=== PATIENT | female | born 1945 | race African-American/Black ===

== ENCOUNTER 2016-12-08 07:41 | Emergency (ER) | payer OTHER ==
[~2016-12-08] VITALS: Ht 167.6 cm; Wt 78.0 kg
[~2016-12-08 07:41] MED LIST: ATOR10TA15 PO; CELE200C PO; DULO1CAP PO; FOLI800T PO; GABA300C5 PO; HYDR25TA5 PO; METF500T PO; METH2.5T PO; OXYC1TAB36 PO; VERA27.5 NASAL
[2016-12-08 07:43] VITALS: BP 163/75; PULSE 84; RESP 14; TEMP 98.1; O2SAT 98
--- NOTE | 2016-12-08 08:38 | PD ---
HPI . numbness and tingling left arm with one episode of vomiting Chief Complaint: Pain: Acute or Chronic Time Seen by Provider: 08:38 Travel History International Travel<30 days: No Contact w/Intl Traveler<30days: No Traveled to known affect area: No History of Present Illness HPI 71-year-old female with history of hypertension, diabetes, rheumatoid arthritis , issues with her neck in the past here with complaints of left arm numbness and tingling as well as one episode of vomiting last night approximately at 10: 30 PM. Patient says that she usually has some nerve issues in her left upper extremity that causes some numbness and tingling however this has been a little bit different especially with the vomiting. She also reports a history of ruptured disc in her neck. Patient says that approximately at 10:30 PM she had an episode of vomiting and she became very concerned for cardiac issues. She is here in the emergency department concerned that she may have had a heart attack or other cardiac event. She is requesting further workup. 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 JENNY, LAPAORTOMY/ LYSIS ADH., LAPAROTOMY CYSTECTOMY) AICD: No Body Medical Devices: CERVICAL HARDWARE Cholecystectomy: Yes Gynecologic Surgery: Yes (HYSTERECTOMY) Hysterectomy: Yes Joint Replacement: Yes (RIGHT KNEE) Neurologic Surgery: Yes (ANT. CERV. FUSION 2001&2015) Other Surgery: Yes (cervical fusion.) Social History Alcohol Use: No Tobacco Use: No Substance Use: No Allergies-Medications (Allergen,Severity, Reaction): Coded Allergies: sulfur (Unverified Allergy, Severe, 12/08/16) 07/09/14 ELEVATES LIVER ENZYMES Sulfa (Sulfonamide Antibiotics) (Unverified Allergy, Unknown, 12/08/16) Reported Meds & Prescriptions Reported Meds & Active Scripts Active Reported Metformin (Metformin HCl) 500 Mg Tab 500 Mg PO BIDPC With meals Hydrochlorothiazide 25 Mg Tab 25 Mg PO DAILY Gabapentin 300 Mg Cap 300 Mg PO TID Celebrex (Celecoxib) 200 Mg Cap 200 Mg PO DAILY Veramyst (Fluticasone Furoate) 27.5 Mcg/Act [place] 2 [place] NASAL DAILY Methotrexate 2.5 Mg Tab 0.7 Ml PO Q7D Folic Acid 800 Mcg Tab 1,000 Mcg PO DAILY Oxycodone-Acetaminophen 10-325 mg Tab 1 Tab PO Q8HR Duloxetine DR (Duloxetine HCl) 20 Mg Capdr 20 Mg PO DAILY Atorvastatin (Atorvastatin Calcium) 10 Mg Tab 10 Mg PO HS Review of Systems General / Constitutional: No: Fever Eyes: No: Visual changes HENT: No: Headaches Cardiovascular: No: Chest Pain or Discomfort Respiratory: No: Shortness of Breath Gastrointestinal: Positive: Vomiting, No: Abdominal Pain Genitourinary: No: Dysuria Musculoskeletal: No: Pain Skin: No Rash Neurologic: Positive: Paresthesia (left arm), No: Weakness Psychiatric: No: Depression Endocrine: No: Polydipsia Hematologic/Lymphatic: No: Easy Bruising Physical Exam Narrative GENERAL: AAO x 3, no acute distress, Well-nourished, well-developed patient. SKIN: Warm and dry. No visible rashes or bruising. HEAD: Normocephalic and atraumatic. EYES: No scleral icterus. No injection or drainage. EOM intact, ENT: No nasal drainage noted. Mucous membranes pink. Airway patent. NECK: Supple, trachea midline. No JVD. No C-spine process tenderness or drop off. Flexion and extension normal. No tenderness to palpation of the trapezius and sternocleidomastoid. CARDIOVASCULAR: Regular rate and rhythm without murmurs, gallops, or rubs. RESPIRATORY: Breath sounds equal bilaterally. No accessory muscle use. No rhonchi or rales. GASTROINTESTINAL: Abdomen soft, non-tender, nondistended. No rebound or guarding EXTREMITIES: No cyanosis or edema. BACK: No obvious deformity. No CVA tenderness. NEURO: CN II-12 intact, tool repairer strength normal b/l, UE and LE 5/5, no focal deficits, negative pronator drift PSYCH: AAO x 3, normal affect. Data Data Last Documented VS Vital Signs Date Time Temp Pulse Resp B/P (MAP) Pulse Ox O2 Delivery O2 Flow Rate FiO2 12/08/16 09:27 98 Room Air 12/08/16 09:27 18 12/08/16 08:53 98.3 75 Orders Orders Electrocardiogram (12/08/16:17) Basic Metabolic Panel (Bmp) (12/08/16 09:17) Ckmb (Isoenzyme) Profile (12/08/16 09:17) Complete Blood Count With Diff (12/08/16:17) Magnesium (Mg) (12/08/16:17) Prothrombin Time / Inr (Pt) (12/08/16 09:17) Act Partial Throm Time (Ptt) (12/08/16 09:17) Troponin I (12/08/16:17) Chest, Single Ap (12/08/16:17) Ecg Monitoring (12/08/16 09:17) Bilateral Bp Monitoring (12/08/16 09:17) Iv Access Insert/Monitor (12/08/16:17) Oximetry (12/08/16 09:17) Oxygen Administration (12/08/16:17) Sodium Chloride 0.9% Flush (Ns Flush) (12/08/16 09:30) MDM Medical Decision Making Medical Screen Exam Complete: Yes Emergency Medical Condition: Yes Medical Record Reviewed: Yes Differential Diagnosis Cervical radiculopathy, gastroenteritis, atypical chest pain, ACS, less likely CVA, TIA Narrative Course 71-year-old female here with complaints of numbness and tingling in her left upper extremity along with one episode of vomiting. I have done an examination and I do not see any gross abnormalities on her neuro examination. She also has no abdominal pain. Patient is concerned about cardiac etiology. With her significant past medical history I will transfer her to a medical pod for further workup. I have discussed with Dr. Barnes, who will resume care of this patient. Condition: Stable Tia Morton Dec 08, 2016 08:38
[2016-12-08 08:53] VITALS: BP 147/61; PULSE 75; RESP 18; TEMP 98.3; O2SAT 97
[2016-12-08 09:27] VITALS: RESP 18; O2SAT 98
[2016-12-08] MEDS ORDERED: SODIUM CHLORIDE 0.9% FLUSH 10 ML FLUSH IVF PRN (09:30)
--- NOTE | 2016-12-08 09:37 | RADRPT ---
EXAM DATE/TIME: 12/08/2016 09:18 [facility] COMPARISON: SHOULDER LEFT COMPLETE (>2VWS), July 11, 2015, 15:54. INDICATIONS : Left arm tingling. Minor chest pain. MEDICAL HISTORY : None. SURGICAL HISTORY : Cervical spine surgery. ENCOUNTER: Initial ACUITY: 2 weeks PAIN SCORE: 1/10 LOCATION: Left middle chest FINDINGS: A single view of the chest demonstrates the lungs to be symmetrically aerated without evidence of mas s, infiltrate or effusion. The cardiomediastinal contours are unremarkable. Osseous structures are intact. CONCLUSION: 1. No acute cardiopulmonary findings. Hayes Thomas MD on December 08, 2016 at 9:35 Board Certified Radiologist. This report was verified electronically.
[2016-12-08 09:38] VITALS: BP_SYST 146; BP_SYST 155; BP_DIAS 74; BP_DIAS 79; PULSE 78
[2016-12-08 09:57] LABS: APTT (PATIENT) 25.3 SEC (24.3-30.1); INTERNATIONAL NORMALIZED RATIO 0.9 RATIO; PROTHROMBIN TIME - PATIENT 9.4 SEC (9.8-11.6)
--- NOTE | 2016-12-08 10:35 | PD ---
Data Data Last Documented VS Vital Signs Date Time Temp Pulse Resp B/P (MAP) Pulse Ox O2 Delivery O2 Flow Rate FiO2 12/08/16 09:38 78 155/74 (101) 146/79 (101) 12/08/16 09:27 98 Room Air 12/08/16 09:27 18 12/08/16 08:53 98.3 Orders Orders Electrocardiogram (12/08/16 09:17) Complete Blood Count With Diff (12/08/16 09:17) Prothrombin Time / Inr (Pt) (12/08/16 09:17) Act Partial Throm Time (Ptt) (12/08/16 09:17) Chest, Single Ap (12/08/16 09:17) Ecg Monitoring (12/08/16 09:17) Iv Access Insert/Monitor (12/08/16 09:17) Oximetry (12/08/16 09:17) Oxygen Administration (12/08/16 09:17) Sodium Chloride 0.9% Flush (Ns Flush) (12/08/16 09:30) Urinalysis - C+S If Indicated (12/08/16 09:50) Comprehensive Metabolic Panel (12/08/16 10:35) Labs Laboratory Tests Test 12/08/16 09:30 12/08/16 10:20 12/08/16 10:55 White Blood Count 7.7 TH/MM3 Red Blood Count 4.25 MIL/MM3 Hemoglobin 12.4 GM/DL Hematocrit 39.4 % Mean Corpuscular Volume 92.9 FL Mean Corpuscular Hemoglobin 29.2 PG Mean Corpuscular Hemoglobin Concent 31.4 % Red Cell Distribution Width 15.0 % Platelet Count 173 TH/MM3 Mean Platelet Volume 8.3 FL Neutrophils (%) (Auto) 76.6 % Lymphocytes (%) (Auto) 13.9 % Monocytes (%) (Auto) 8.5 % Eosinophils (%) (Auto) 0.6 % Basophils (%) (Auto) 0.4 % Neutrophils # (Auto) 5.9 TH/MM3 Lymphocytes # (Auto) 1.1 TH/MM3 Monocytes # (Auto) 0.7 TH/MM3 Eosinophils # (Auto) 0.0 TH/MM3 Basophils # (Auto) 0.0 TH/MM3 CBC Comment DIFF FINAL Differential Comment Prothrombin Time 9.4 SEC Prothromb Time International Ratio 0.9 RATIO Activated Partial Thromboplast Time 25.3 SEC Urine Color YELLOW Urine Turbidity CLEAR Urine pH 6.5 Urine Specific Mark 1.021 Urine Protein NEG mg/dL Urine Glucose (UA) NEG mg/dL Urine Ketones NEG mg/dL Urine Occult Blood NEG Urine Nitrite NEG Urine Bilirubin NEG Urine Urobilinogen LESS THAN 2.0 MG/DL Urine Leukocyte Esterase NEG Urine RBC 1 /hpf Urine WBC 2 /hpf Urine Squamous Epithelial Cells <1 /hpf Urine Mucus FEW /lpf Microscopic Urinalysis Comment CULT NOT INDICATED Blood Urea Nitrogen 15 MG/DL Creatinine 0.62 MG/DL Random Glucose 142 MG/DL Total Protein 7.3 GM/DL Albumin 3.6 GM/DL Calcium Level 9.3 MG/DL Alkaline Phosphatase 88 U/L Aspartate Amino Transf (AST/SGOT) 18 U/L Alanine Aminotransferase (ALT/SGPT) 33 U/L Total Bilirubin 0.3 MG/DL Sodium Level 138 MEQ/L Potassium Level 3.9 MEQ/L Chloride Level 102 MEQ/L Carbon Dioxide Level 30.8 MEQ/L Anion Gap 5 MEQ/L Estimat Glomerular Filtration Rate 115 ML/MIN [facility] Medical Record Reviewed: Yes Supervised Visit with RADHA: No Narrative Course CBC & BMP Diagram 12/08/16 09:30 12/08/16 10:55 Total Protein 7.3, Albumin 3.6, Calcium Level 9.3, Alkaline Phosphatase 88, Aspartate Amino Transf (AST/SGOT) 18, Alanine Aminotransferase (ALT/SGPT) 33, Total Bilirubin 0.3 The urinalysis is normal EKG: Sinus rate 64 normal axis intervals no ischemic injury pattern Chest x-ray: No acute cardio pulmonary disease The patient is resting comfortably and feels better, is alert and in no distress. The patients results and examination findings were discussed. The repeat examination is unremarkable and benign. The history, exam, diagnostic testing, and current condition do not suggest any significant pathology to warrant further testing, continued ED treatment, admission, or surgical evaluation at this point. The vital signs have been stable. The patient does not have uncontrollable pain, intractable vomiting, or other significant symptoms. The patient's condition is stable and appropriate for discharge. The patient will pursue further outpatient evaluation with a primary care physician or other designated or consulting physician as indicated in the discharge instructions. The patient expressed understanding and was agreeable with this plan. Diagnosis Primary Impression: DDD (degenerative disc disease), cervical Additional Impression: Vomiting Qualified Codes: R11.10 - Vomiting, unspecified Additional Instruction: You have a choice when it comes to health care, and we are glad that you chose [facility]. Hopefully, we have met your expectations on today's visit. You are welcome to return to [facility] at any time, as we are committed to meeting the health care needs of our community. Disposition: 01 DISCHARGE HOME Condition: Stable Hayes Barnes MD Dec 08, 2016 10:35
[2016-12-08 10:44] LABS: AUTOMATED NEUTROPHIL # 5.9 TH/MM3 (1.8-7.7); BASOPHIL % 0.4 % (0.0-2.0); EOSINOPHIL % 0.6 % (0.0-4.0); HEMATOCRIT 39.4 % (35.0-46.0); HEMO FLAGS DIFF FINAL; LYMPH % 13.9 % (9.0-44.0); LYMPHOCYTE # 1.1 TH/MM3 (1.0-4.8); MEAN CELL VOLUME 92.9 FL (80.0-100.0); MEAN CORPUSCULAR HEMOGLOBIN 29.2 PG (27.0-34.0); MEAN CORPUSCULAR HGB CONC 31.4 % (32.0-36.0); MONO % 8.5 % (0.0-8.0); NEUT % 76.6 % (16.0-70.0); PLATELET COUNT 173 TH/MM3 (150-450); RED BLOOD COUNT 4.25 MIL/MM3 (4.00-5.30); WHITE BLOOD COUNT 7.7 TH/MM3 (4.0-11.0)
[2016-12-08 10:47] LABS: BLOOD, URINE NEG (NEG); GLUCOSE,URINE NEG (NEG); KETONE, URINE NEG (NEG); MUCUS URINE FEW /lpf (OCC); NITRITE,URINE NEG (NEG); PH, URINE 6.5 (5.0-8.5); SQUAMOUS EPITHELIAL CELL URINE <1 /hpf (0-5); URINE COLOR YELLOW (YELLW/STRAW)
[2016-12-08 11:00] LABS: COMMENT (UR) CULT NOT INDICATED; CULTURE IF INDICATED CULT NOT INDICATED
--- NOTE | 2016-12-08 11:00 | EKG ---
Date Performed: 12/08/2016 Time Performed: 09:45:28 PTAGE: 71 years EKG: Sinus rhythm NORMAL ECG PREVIOUS TRACING : 07/11/2015 16.13 No significant change from previous tracing noted. DOCTOR: Elias Garcia Interpretating Date/Time 12/08/2016 11:00:13
[2016-12-08 11:53] LABS: ALKALINE PHOSPHATASE 88 U/L (45-117); TOTAL BILIRUBIN ADULT 0.3 MG/DL (0.2-1.0)
[2016-12-08 11:58] LABS: ALT (GPT) 33 U/L (10-53); ANION GAP 5 MEQ/L (5-15); AST (GOT) 18 U/L (15-37); BICARBONATE 30.8 MEQ/L (21.0-32.0); BLOOD UREA NITROGEN 15 MG/DL (7-18); CHLORIDE 102 MEQ/L (98-107); GLOMERULAR FILTRATION RATE 115 ML/MIN (>89); POTASSIUM 3.9 MEQ/L (3.5-5.1); SODIUM (NA) 138 MEQ/L (136-145)
== END 2016-12-08 13:07 | disposition home or self-care (01) ==
LOC: NEPK 07:41 → NEPD 13:07
DX: M50.30 Other cervical disc degeneration, unspecified cervical region (principal); R11.10 Vomiting, unspecified; I10 Essential (primary) hypertension; E11.9 Type 2 diabetes mellitus without complications; M06.9 Rheumatoid arthritis, unspecified; J45.909 Unspecified asthma, uncomplicated; H40.9 Unspecified glaucoma; F41.9 Anxiety disorder, unspecified; Z79.899 Other long term (current) drug therapy
CPT/HCPCS: 71010; 80053; 81001; 85025; 85610; 85730; 93005; 99285